=== PATIENT | male | born 1960 | race Caucasian/White ===

== ENCOUNTER 2019-11-16 04:57 | Observation (INO) ==
--- NOTE | 2019-10-28 09:04 | PAT Medication Instructions ---
Medication Instructions Date of Service October 28, 2019 Home Medications ascorbic acid (vitamin C) [Vitamin C] 1 g PO QAM cholecalciferol (vitamin D3) [Vitamin D3] 125 mcg PO QAM multivitamin 1 tab PO QAM omeprazole 20 mg PO BID DO NOT take the morning of surgery ascorbic acid (vitamin C) [Vitamin C] 1 g PO QAM cholecalciferol (vitamin D3) [Vitamin D3] 125 mcg PO QAM multivitamin 1 tab PO QAM Take morning of surgery With a small sip of water, OTHERWISE NOTHING TO EAT OR DRINK AFTER MIDNIGHT: omeprazole 20 mg PO BID Take evening before surgery omeprazole 20 mg PO BID Other Notes If you have any questions please call us at [phone] or [phone] or [phone] or [phone]
--- NOTE | 2019-10-31 10:34 | Anesthesiology Consultation ---
Date of Service October 31, 2019 Assessment & Plan (1) Encounter for pre-operative examination: - Per assessment on 10/30: Travel screen- Travel to [facility] for summer baseball games ([employer]). Uses PPE. No known COVID-19 positi ve contacts or current COVID-19 related symptoms. 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 No known COVID positive/PUI staff or clients per patient. Uses PPE). No COVID positive staff/clients. Most recent COVID test 10/18 was negative. Surgeon arranging preop COVID testing. Awaiting results. - Anxious RE SAB: requesting anxiolytic preop if possible. Chart Review Chart Review: Acceptable Risk for Surgery (pending surgeon-ordered PCP clearance (Dr. Benjamin)) and Patient seen in Pre Admission Testing Teaching & Discussion Pre-Anesthesia Teaching/Discussion Notes: Instructed NPO after midnight before surgery,except medications with 15 cc of water. Medication instructions provided according to the PAT guidelines. History Surgery Operation Date: 11/16/19 07:00 Proposed Procedures p Left Total Hip Arthroplasty - Andreas Cortes MD Height/Weight Height: 5 ft 8 in Weight: 73.4 kg Allergies Allergy/AdvReac Type Severity Reaction Status Date / Time Penicillins Allergy Severe hives, Verified 10/31/19 10:30 dyspnea Sulfa (Sulfonamide Allergy Severe hives, Verified 10/31/19 10:30 Antibiotics) dyspnea Medications Home Medications Medication Instructions Recorded Confirmed Last Taken ascorbic acid (vitamin C) [Vitamin 1 g PO QAM 10/24/19 10/24/19 Unknown C] cholecalciferol (vitamin D3) 125 mcg PO QAM 10/24/19 10/24/19 Unknown [Vitamin D3] multivitamin 1 tab PO QAM 10/24/19 10/24/19 Unknown omeprazole 20 mg PO BID 10/24/19 10/24/19 Unknown Past Medical History Medical History (Updated 10/31/19 @ 11:00 by Annabel Crawford) 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 GERD (gastroesophageal reflux disease) occasional Osteoarthritis Exercise / Class Metabolic Activity II 4-5 Yardwork/Stairs/Walk up hill Past Surgical History Surgical History History of arthroscopy RIGHT KNEE X4 LEFT KNEE X1 History of colonoscopy History of repair of rotator cuff X3 RIGHT SHOULDER WITH HARDWARE PRESENT History of tooth extraction WISDOM TEETH Past Anesthesia History No Hx of Anesthesia Complications and No Family Hx of Anesthesia Complications History of PONV No Hx of PONV and Hx of Motion Sickness (occasional) Social History Smoking Status: Never smoker Do You Dip or Chew Tobacco: No Hx Alcohol Use: Yes Alcohol type: beer and hard liquor alcohol intake frequency: a few times a week Hx Substance Use: No substance use type: does not use Review of Systems Occasional reflux. Patient denies chest pain, shortness of breath, dyspnea on exertion, fever, chills, cough, wheezing, palpitations. Physical Exam Vital Signs VITALS BP 146/84 P 75 TEMP 98.2 SP02 97%RA RESP 18 PHYSICAL Full neck and c-spine range of motion. Full TMJ range of motion. TMD 3.5 finger breaths Mallampati Score 2 Dentition: intact, + crowns (several all over) Lungs: clear throughout to auscultation Cardiac: regular rate and rhythm, no murmurs noted Spine: normal Extremities: no edema Testing Laboratory Results 10/31/19 11:02 10/31/19 11:02 PT 10.6 Seconds (9.0-12.0) 10/31/19 11:02 INR 1.0 (0.9-1.1) 10/31/19 11:02 APTT 27.4 Seconds (21.0-31.0) 10/31/19 11:02 Urine Color Dark Yellow 10/31/19 11:02 Urine Appearance Turbid (Clear) A 10/31/19 11:02 Urine pH 5.0 (4.5-7.5) 10/31/19 11:02 Ur Specific [place] 1.023 (1.000-1.030) 10/31/19 11:02 Urine Protein Negative (Negative) 10/31/19 11:02 Urine Glucose (UA) Negative (Negative) 10/31/19 11:02 Urine Ketones Trace (Negative) H 10/31/19 11:02 Urine Nitrite Negative (Negative) 10/31/19 11:02 Ur Leukocyte Esterase Negative (Negative) 10/31/19 11:02 Urine WBC (Auto) 1-5 /hpf (0-5) 10/31/19 11:02 Urine RBC (Auto) 0-4 /hpf (0-4) 10/31/19 11:02 U Hyaline Cast (Auto) 1-5 /lpf (0-5) 10/31/19 11:02 U Epithel Cells (Auto) 10-20 /lpf (0-5) H 10/31/19 11:02 Urine Bacteria (Auto) Negative (Negative) 10/31/19 11:02 Blood Type O Negative 10/31/19 11:02 Antibody Screen NEGATIVE 10/31/19 11:02 Electrocardiogram Date: 10/31/19 NSR at 75bpm. Rightward axis. unconfirmed report* Chest X-Ray Date: 10/31/19 FINDINGS: Lung volumes are normal. Lungs are clear. There is no pneumothorax or pleural effusion. Cardiac size is normal. Mediastinal contours are normal. There is no evidence for pulmonary edema. Incidental note is made of postoperative findings within each shoulder. IMPRESSION: No acute cardiopulmonary findings.
--- NOTE | 2019-10-31 11:43 | XRay Report ---
XR chest Pre-admission PA/Lat CLINICAL HISTORY: Preoperative evaluation. COMPARISON STUDY: No previous studies for comparison. FINDINGS: Lung volumes are normal. Lungs are clear. There is no pneumothorax or pleural effusion. Car diac size is normal. Mediastinal contours are normal. There is no evidence for pulmonary edema. Incid ental note is made of postoperative findings within each shoulder. IMPRESSION: No acute cardiopulmonary findings. ACT 112: Negative or not required by law. Electronically signed by: Roldan Downey M.D. 10/31/2019 11:42 AM
[2019-10-31 12:42] LABS: Basophils # (auto) 0.02 K/uL (0-0.2); Basophils % (auto) 0.2 %; Eosinophils # (auto) 0.22 K/uL (0-0.5); Hematocrit (blood only) 42.4 % (42-52); Hemoglobin 14.2 g/dL (14.0-18.0); Immature Granulocytes # (auto) 0.02 K/uL (0.00-0.02); Immature Granulocytes % (auto) 0.2 %; Lymphocytes # (auto) 1.43 K/uL (1.2-3.4); Lymphocytes % (auto) 13.2 %; Mean Corpuscular Hemoglobin 32.3 pg (25-34); Mean Corpuscular Hgb Conc 33.5 g/dL (32-36); Mean Corpuscular Volume 96.4 fL (80-100); Mean Platelet Volume 9.7 fL (7.4-10.4); Monocytes # (auto) 0.86 K/uL (0.11-0.59); Monocytes % (auto) 7.9 %; Neutrophils # (auto) 8.27 K/uL (1.4-6.5); Neutrophils % (auto) 76.5 %; Platelet Count 458 K/uL (130-400); RDW Coefficient of Variation 14.3 % (11.5-14.5); RDW Standard Deviation 50.4 fL (36.4-46.3); White Blood Count 10.82 K/uL (4.8-10.8)
[2019-10-31 12:51] LABS: Partial Thromboplastin Time 27.4 Seconds (21.0-31.0); Prothrombin Time 10.6 Seconds (9.0-12.0)
[2019-10-31 12:52] LABS: BUN Creatinine Ratio 7.2 (10-20); Calcium 9.8 mg/dl (8.5-10.1); Creatinine Clr Calc Pharmacy 79.8 ml/min; Est GFR (Non-African American) 87.2; Potassium 4.3 mmol/L (3.5-5.1)
[2019-10-31 12:54] LABS: Appearance Urine Turbid (Clear); Bacteria Urine Automated Negative (Negative); Bilirubin Urine Negative (Negative); Blood Urine Negative (Negative); Color Urine Dark Yellow; Glucose Urine UA Negative (Negative); Ketones Urine Trace (Negative); Leukocyte Esterase Urine Negative (Negative); Nitrite Urine Negative (Negative); Protein Urine Negative (Negative); RBC Urine Automated 0-4 /hpf (0-4); Specific Gravity Urine 1.023 (1.000-1.030); Urobilinogen Urine Negative (Negative)
--- NOTE | 2019-11-01 11:30 | History & Physical Report ---
Date of Service November 01, 2019 Assessment & Plan (1) Degenerative joint disease of left hip: Postoperative prescriptions for Coumadin and Percocet will be provided at discharge from the hospital. Anticipate discharge to home with home health services. Preoperative lab work, EKG, and chest x-ray have been ordered. Medical clearance has been received from his PCP, Dr. Benjamin. Prescription was provided for a walker. Informed written consent was obtained today by Dr. Cortes. PDMP was checked and there are no concerning findings. The patient is aware of COVID-19 risks associated with surgery. He is currently asymptomatic of any COVID-19 symptoms. He will obtain nasal swab testing prior to surgery for COVID-19. Order was placed. History of Present Illness Chief Complaint: Left hip pain Primary Care Provider: Yung Benjamin MD This 59-year-old white male presents today with left hip pain for a little over a year. He is scheduled to undergo a left hip total hip arthroplasty on 11/16/2019. Symptoms are worse with activity. He notes a little pain when sitting or sleeping. He is having difficulty with his ADLs due to the hip pain. Worse with weightbearing or walking. 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 He has tried activity modification as well as oral pain medication and oral anti-inflammatories without improvement. X-ray and MRI have been obtained. He notes some loss of motion. No numbness or tingling. Allergies Allergy/AdvReac Type Severity Reaction Status Date / Time Penicillins Allergy Severe hives, Verified 10/31/19 10:30 dyspnea Sulfa (Sulfonamide Allergy Severe hives, Verified 10/31/19 10:30 Antibiotics) dyspnea Home Medications Home Medications Medication Instructions Recorded Confirmed Type ascorbic acid (vitamin C) [Vitamin 1 g PO QAM 10/24/19 10/24/19 History C] cholecalciferol (vitamin D3) 125 mcg PO QAM 10/24/19 10/24/19 History [Vitamin D3] multivitamin 1 tab PO QAM 10/24/19 10/24/19 History omeprazole 20 mg PO BID 10/24/19 10/24/19 History Past Med/Surg History Medical History 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 GERD (gastroesophageal reflux disease) occasional Osteoarthritis Surgical History History of arthroscopy RIGHT KNEE X4 LEFT KNEE X1 History of colonoscopy History of repair of rotator cuff X3 RIGHT SHOULDER WITH HARDWARE PRESENT History of tooth extraction WISDOM TEETH Social History Smoking Status: Never smoker Second Hand Exposure: Yes; Do You Dip or Chew Tobacco: No; Tobacco Cessation Education Requested by Patient: No Hx Alcohol Use: Yes Alcohol type: beer and hard liquor Hx Substance Use: No Preferred Language: Chadian Communication Ability: Effective 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 General: Well-developed, well-nourished middle-aged white male in no acute distress. Sitting in a chair. Alert and oriented. Skin: Warm and dry with good turgor. No rashes or lesions. No ecchymosis or erythema. HEENT: Normocephalic, atraumatic. Eyes: PERRLA, EOMI. Nares and oropharynx exams deferred due to COVID precautions. Heart: RRR, no MGR. Lungs: Clear to auscultation bilaterally, no crackles, rhonchi or wheezing, good air movement. Abdomen: Bowel sounds present x4, soft, nontender. No organomegaly. No masses. Musculoskeletal: Left hip evaluation reveals no obvious asymmetry or deformity. He has no pain with palpation over his IT band or greater trochanter. There is pain with palpation over the anterior flexion crease and into the groin. No pain over his lumbar spine or SI joints. There is limited motion of the hip secondary to discomfort. Flexion to around 100 degrees, external rotation of 20 degrees, internal rotation of only about 5 degrees. Ambulates with a slightly antalgic gait. Neurologic: Gross sensation is intact across the left leg by soft touch. Peripheral pulses are 2+. Results & Data Results & Data ([facility]) Diagnostic Findings Radiographic imaging and MRI previously obtained show extensive arthritic changes including loss of joint space, periarticular osteophytes, and subchondral sclerosis. MRI shows cystic changes within the femoral head.
--- NOTE | 2019-11-01 21:40 | Electrocardiogram Report ---
Test Reason : Blood Pressure : / mmHG Vent. Rate : 075 BPM Atrial Rate : 075 BPM P-R Int : 160 ms QRS Dur : 094 ms QT Int : 416 ms P-R-T Axes : 055 091 005 degrees QTc Int : 464 ms Normal sinus rhythm Rightward axis Borderline ECG No previous ECGs available Confirmed by Shayan Tanner ([id number]) on 11/01/2019 9:39:32 PM Referred By: Andreas Cortes Confirmed By:Shayan Tanner
[2019-11-16] MEDS ORDERED: ROPIVACAINE 0.5% HCL/PF 150 MG, BUPIVACAINE 0.5% MPF 30 ML, EPINEPHrine 0.15 MG, Ketoro... INFIL SCH (06:00)
[2019-11-16] MEDS ORDERED: CEFAZOLIN 2000MG 2,000 MG/15 ML SYR IV SCH (06:00)
[2019-11-16] MEDS ORDERED: VANCOMYCIN HCL 1,500 MG in SODIUM CHLORIDE 0.9% 500 ML IV SCH (06:00)
[2019-11-16] MEDS ORDERED: LR 60ML/HR IV SCH (06:00)
[2019-11-16] MEDS ORDERED: TRANEXAMIC ACID 1,000 MG **IV Pre-op IV SCH (06:00)
[2019-11-16] MEDS ORDERED: LR 500ML BOLUS, THEN 15ML/HR IV SCH (06:00)
[2019-11-16] MEDS ORDERED: BUPIVACAINE 0.5 % 5 MG/1 ML PF 10ML VIAL ONE (06:22)
--- NOTE | 2019-11-16 06:27 | History & Physical Bridge Note ---
Date of Service November 16, 2019 History & Physical Bridge Note I have examined the patient, reviewed the History & Physical and in the interval since the performance of the History & Physical I have noted the following changes of clinical significance:consent /site verified/covid screen negative. no changes noted
[2019-11-16] MEDS ORDERED: MIDAZOLAM HCL 1 MG/ML 2ML VIAL ONE (06:36)
[2019-11-16] MEDS ORDERED: fentaNYL citrate 100 MCG/2 ML VIAL ONE (06:36)
[2019-11-16] MEDS ORDERED: ORTHO JOINT ANESTHETIC ONE (06:52)
[2019-11-16] MEDS ORDERED: ONDANSETRON INJ 2 MG/ML 2 ML VIAL IV PRN ×2 (07:10→09:18)
[2019-11-16] MEDS ORDERED: ATROPINE SULFATE 0.1 MG/ML 10ML SYR IV PRN (07:10)
[2019-11-16] MEDS ORDERED: KETOROLAC 30 MG/ML VIAL IV PRN (07:10)
[2019-11-16] MEDS ORDERED: ePHEDrine sulfate 50 MG/ML AMP IV PRN (07:10)
[2019-11-16] MEDS ORDERED: HYDROmorphone INJ 1 MG/ML SYRINGE IV PRN (07:10)
[2019-11-16] MEDS ORDERED: PHENYLEPHRINE 100MCG/ML 5ML SYR ONE (08:06)
[2019-11-16] MEDS ORDERED: PROPOFOL IV EMULSION 10 MG/ML 20 ML VIAL IV ONE (08:06)
[2019-11-16] MEDS ORDERED: ePHEDrine sulfate 50 MG/ML SYR ONE (08:06)
[2019-11-16] MEDS ORDERED: LIDOCAINE HCL 2% 2 ML VIAL/AMP(20MG/ML) INFIL ONE (08:06)
--- NOTE | 2019-11-16 08:24 | Post Operative Brief Note ---
Immediate Post Op Note v1 Date of Surgery November 16, 2019 Pre & Post Diagnosis Operation Date: 11/16/19 07:00 Pre-Op Diagnosis: Left Hip Degenerative Joint Disease Post-Op Diagnosis: Left Hip Degenerative Joint Disease I identified the patient and participated in the time-out.: Yes Procedure Operation Date: 11/16/19 07:00 Actual Procedures p Left Total Hip Arthroplasty--Uncemented(Left) - Andreas Cortes MD Surgeon Andreas Cortes MD Viner Operator aashish/rohan Estimated Blood Loss 100 Findings Consistent with Post-Op Diagnosis
--- NOTE | 2019-11-16 08:37 | Operative Report ---
Post Operative Report Pre & Post Diagnosis Operation Date: 11/16/19 07:00 Pre-Op Diagnosis: Left Hip Degenerative Joint Disease Post-Op Diagnosis: Left Hip Degenerative Joint Disease I identified the patient and participated in the time-out.: Yes Procedure Operation Date: 11/16/19 07:00 Actual Procedures p Left Total Hip Arthroplasty--Uncemented(Left) - Andreas Cortes MD Surgeon SARA Cortes MD Inserting Operator aashish/rohan Estimated Blood Loss 100 Findings Consistent with Post-Op Diagnosis Specimens see operative report Drains none Complications none Disposition Accompanied Patient To Recovery: Yes Disposition: Recovery Room Indications This 59-year-old white male presented to the office with complaints of persisting left hip pain. He had tried conservative care measures without improvement. He elected to proceed with surgical intervention after being educated about potential risks and outcomes. Preoperative imaging was obtained. Description of Procedure Patient was administered a spinal anesthetic and then taken to the operating room where he was given sedation. He was prepped and draped in the usual sterile fashion. Please see Dr. Cortes's operative report for specifics of the procedure. I was present for the entire case from initial patient positioning through final wound closure. Assistance was provided in tissue retraction, hemostasis, trial implant placement, final implant placement, and final wound closure. Patient was taken to the recovery room in satisfactory condition. I attest to the content of the Intraoperative Record and any orders documented therein. Any exceptions are noted below.
--- NOTE | 2019-11-16 08:38 | Operative Report ---
Post Operative Report Pre & Post Diagnosis Operation Date: 11/16/19 07:00 Pre-Op Diagnosis: Left Hip Degenerative Joint Disease Post-Op Diagnosis: Left Hip Degenerative Joint Disease I identified the patient and participated in the time-out.: Yes Procedure Operation Date: 11/16/19 07:00 Actual Procedures p Left Total Hip Arthroplasty--Uncemented(Left) - Andreas Cortes MD Surgeon Andreas Cortes MD Regulatory Intern aashish/rohan Estimated Blood Loss 100 Findings Consistent with Post-Op Diagnosis Specimens None Drains None Anesthesia Type Spinal MAC Complications none Disposition Accompanied Patient To Recovery: Yes Disposition: Recovery Room Indications Severe left hip osteoarthritis Description of Procedure As per Dr. Cortes's note, I assisted in scrubbing and draping, certain parts of the procedure, instruments handling, wound closure and accompanied patient to the recovery room I attest to the content of the Intraoperative Record and any orders documented therein. Any exceptions are noted below.
--- NOTE | 2019-11-16 08:52 | Operative Report (OR) ---
DATE OF OPERATION: 11/16/2019 SURGEON: Andreas Cortes MD. TELEMEDICINE PHYSICIAN: Mala. SECOND TELEMEDICINE PHYSICIAN: Rudi Aguilar PA-C. PREOPERATIVE DIAGNOSIS: Osteoarthritis with dysplasia, left hip. POSTOPERATIVE DIAGNOSIS: Osteoarthritis with dysplasia, left hip. OPERATION PERFORMED: Noncemented left total hip replacement. SUMMARY OF IMPLANTS: Size 52 acetabular shell sector cup hole eliminator, cancellous screw 6.5 x 25, liner 36 x 52 neutral, 2 high offset Tri-Lock and 36+5 ceramic head. ESTIMATED BLOOD LOSS: 100 mL CRYSTALLOID: Per anesthesia. DVT PROPHYLAXIS: Per protocol. PERIOPERATIVE SITUATION: Medically cleared male with intractable hip pain, has been followed for some time, wants to proceed with surgical treatment. Consent obtained, please see risks and consequences. He understands, notes that there are no guarantees. DESCRIPTION OF PROCEDURE: The patient appropriately identified, site verified, consent verified. Antibiotics confirmed as being given. The left lower extremity was prepped and draped in usual routine fashion. Posterior approach to the hip was made. Sharp dissection carried through skin and blunt dissection down to the fascia. IT band split, gluteus sudheer fascia split, retractors placed. Care taken to protect the sciatic nerve. Short external rotators identified and released. Capsule T'd, hip dislocated. Femoral neck resected and head resected. Acetabulum marked, pathology with an inverted labrum anteriorly with tear. This was all debrided. Serial reaming carried up. It was slightly medialized and then 52 cup impacted into position with excellent version and inclination. A 6.5 x 25 screw was placed with excellent purchase. The trial liner seated. The femur was then flexed and internally rotated. The proximal femur prepared with a box shook patcher, canal finder, lateralizing rasp, and serial broaching up to a size 2 was elected to stop. There was excellent press fit. A trial reduction was then carried out, slightly short with a +1.5. The hip was very stable. The hip was then dislocated. All trial elements were removed. The wound was irrigated with Betadine, Pulsavac, hole eliminator, seated permanent liner, seated permanent stem and head seated. It was a +5. Leg lengths were excellent. Wound was then irrigated one final time. The hip was stable in all planes and then closed with #2 Vicryl for the capsule and short external rotators #2-0 Vicryl for the IT band fascia, gluteus sudheer fascia, 2-0 Vicryl for the subcutaneous layer and stainless steel clips for skin. Appropriate dressing applied. The patient transferred to recovery room in satisfactory condition having tolerated the procedure well. I attest to the content of the Intraoperative Record and any orders documented therein. Any exception s are noted below.
--- NOTE | 2019-11-16 09:04 | XRay Report ---
SINGLE VIEW PELVIS CLINICAL HISTORY: Postoperative examination. FINDINGS: An AP portable view of the hips and lower pelvis is compared to study dated 10/31/2019 A bip olar left hip arthroplasty is in near-anatomic alignment. A single cortical lag screw transfixes the acetabular cup. No acute fracture is identified. There are expected postoperative changes overlying t he left hip including skin clips, subcutaneous gas, and soft tissue swelling. Mild to moderate osteoa rthritic change is noted in the right hip. There are numerous pelvic phleboliths. IMPRESSION: Expected postoperative findings status post left hip arthroplasty. No acute fracture is s een. ACT 112: Negative or not required by law. Electronically signed by: Ashish Keller M.D. 11/16/2019 9:02 AM
--- NOTE | 2019-11-16 09:13 | Anesthesiology Progress Note ---
Date of Service November 16, 2019 Anesthesia Post Procedure Vital Signs Vital Signs: Temp Pulse Pulse Resp BP Pulse Ox 11/16/19 09:00 36.4 C L 70 16 114/66 100 11/16/19 08:50 81 20 113/61 100 11/16/19 08:40 75 19 115/64 100 11/16/19 08:34 36.5 C 75 16 113/65 100 11/16/19 06:20 82 18 154/88 H 100 11/16/19 05:37 37.1 C 82 18 151/87 H 100 Pain Intensity Left Hip: Pain Intensity: 2 Transfer of Care Handoff Completed per policy Notes Mental Status: alert / awake / arousable Patient Amnestic to Procedure: Yes Nausea / Vomiting: adequately controlled Pain: adequately controlled Airway Patency, RR, SpO2: stable & adequate BP & HR: stable & adequate Hydration State: stable & adequate Anesthetic Complications: no major complications apparent
[2019-11-16] MEDS ORDERED: HYDROmorphone INJ 0.5 MG/0.5 ML SYR IV PRN (09:18)
[2019-11-16] MEDS ORDERED: TAMSULOSIN HCL 0.4 MG CAP PO PRN (09:18)
[2019-11-16] MEDS ORDERED: bisacodyL 10 MG SUPP PR PRN (09:18)
[2019-11-16] MEDS ORDERED: SODIUM CHLORIDE 0.9% 1000ML 1,000 ML IV SCH (09:18)
[2019-11-16] MEDS ORDERED: DiphenhydrAMINE HCL 50 MG/ML VIAL IV PRN (09:18)
[2019-11-16] MEDS ORDERED: OXYCODONE HCL IR 5 MG TAB (IMMEDIATE RELEASE) PO PRN (09:18)
[2019-11-16] MEDS ORDERED: METOCLOPRAMIDE HCL INJ 5 MG/ML 2 ML VIAL IV PRN (09:18)
[2019-11-16] MEDS ORDERED: MAGNESIUM HYDROXIDE SUSP 30 ML UDC PO PRN (09:18)
[2019-11-16] MEDS ORDERED: ALUMINUM/MAGNESIUM SUSP 30 ML UDC PO PRN (09:18)
[2019-11-16] MEDS ORDERED: NALOXONE HCL 0.4 MG/1 ML VIAL/CARP IV PRN (09:18)
[2019-11-16] MEDS: DOCUSATE SODIUM 100 MG CAP PO SCH ×2 (10:37→19:47)
[2019-11-16] MEDS: KETOROLAC 30 MG/ML VIAL IV SCH ×3 (10:37→21:54)
[2019-11-16] MEDS: MULTIVITAMIN TAB PO SCH (10:37)
--- NOTE | 2019-11-16 12:06 | Progress Notes ---
DATE: 11/16/2019 SUBJECTIVE: Postop check, status post left total hip replacement. The patient is sitting up in bed eating his breakfast, has no issues. Denies any chest pain, shortness of breath, fever, chills, nausea, vomiting or headache. OBJECTIVE: Vital signs are stable. He is afebrile. Neurovascular check of femoral sciatic nerve is normal. Postop x-rays look excellent. ASSESSMENT: Doing well status post left total hip replacement. Continue with care pathway. Discharge tomorrow.
--- NOTE | 2019-11-16 12:42 | Discharge Summary (DS) ---
CHIEF COMPLAINT: Left hip pain. HISTORY OF PRESENT ILLNESS: The patient underwent elective left total hip replacement. He has done well. Hospital course has been uneventful. Postop x-rays look excellent. ALLERGIES: PENICILLIN AND SULFA. PREADMISSION MEDICATIONS: Include vitamins, omeprazole. PAST MEDICAL HISTORY: Remarkable for bone cancer with lymph nodes ages 2-8, GERD, osteoarthritis. PAST SURGICAL HISTORY: Remarkable for multiple knee arthroscopies, colonoscopy, rotator cuff surgery, wisdom teeth extraction. SOCIAL HISTORY: Reveals he does not smoke, does not chew. Social alcohol only. Feels safe at home. Lives alone. REVIEW OF SYSTEMS: Noncontributory. Postoperative x-rays look excellent. ASSESSMENT: Doing well status post left total hip replacement. Discharged to home tomorrow 11/17/2019 after physical therapy and occupational therapy.
[2019-11-16] MEDS ORDERED: ORTHO WARFARIN NOMOGRAM SCH (14:00)
[2019-11-16] MEDS ORDERED: TRANEXAMIC ACID / 0.7% NACL 1,000 MG/100 ML BAG IV SCH (14:45)
[2019-11-16] MEDS: ACETAMINOPHEN 500 MG TAB PO SCH ×2 (15:01→21:54)
[2019-11-16] MEDS ORDERED: WARFARIN SOD 5 MG TAB PO SCH (16:00)
[2019-11-16] MEDS: FERROUS GLUCONATE 324 MG TAB PO SCH (17:03)
[2019-11-16] MEDS: ASCORBIC ACID 500 MG TAB PO SCH (17:04)
[2019-11-16] MEDS ORDERED: VANCOMYCIN HCL 1,000 MG in SODIUM CHLORIDE 0.9% 250 ML IV SCH (18:00)
[2019-11-16] MEDS ORDERED: SENNA 8.6 MG TAB PO SCH (21:00)
[2019-11-17] MEDS: KETOROLAC 30 MG/ML VIAL IV SCH (03:55)
[2019-11-17] MEDS: ACETAMINOPHEN 500 MG TAB PO SCH (05:34)
[2019-11-17 06:32] LABS: Basophils # (auto) 0.01 K/uL (0-0.2); Basophils % (auto) 0.1 %; Eosinophils # (auto) 0.08 K/uL (0-0.5); Eosinophils % (auto) 0.7 %; Hematocrit (blood only) 31.3 % (42-52); Hemoglobin 10.4 g/dL (14.0-18.0); Immature Granulocytes # (auto) 0.03 K/uL (0.00-0.02); Immature Granulocytes % (auto) 0.3 %; Lymphocytes # (auto) 1.45 K/uL (1.2-3.4); Lymphocytes % (auto) 12.9 %; Mean Corpuscular Hemoglobin 31.9 pg (25-34); Mean Corpuscular Hgb Conc 33.2 g/dL (32-36); Mean Platelet Volume 9.2 fL (7.4-10.4); Monocytes # (auto) 1.03 K/uL (0.11-0.59); Monocytes % (auto) 9.2 %; Neutrophils % (auto) 76.8 %; Platelet Count 395 K/uL (130-400); RDW Coefficient of Variation 14.1 % (11.5-14.5); RDW Standard Deviation 49.3 fL (36.4-46.3); Red Blood Count 3.26 M/uL (4.7-6.1)
[2019-11-17 06:40] LABS: INR 1.1 (0.9-1.1); Prothrombin Time 11.2 Seconds (9.0-12.0)
--- NOTE | 2019-11-17 06:56 | Progress Notes ---
DATE: 11/17/2019 SUBJECTIVE: Postop day #1 status post left total hip replacement. The patient is doing well, is mobile using his walker. OBJECTIVE: His wound dressing is clean, dry, and intact. Neurovascular check femoral sciatic nerve is normal. Calves nontender. A.m. labs are pending. ASSESSMENT AND PLAN: Doing well. Discharge to home today. Coumadin dose per nomogram. Will need H and H as outpatient to assess response to Coumadin. Form signed for discharge coverage.
[2019-11-17 07:03] LABS: BUN Creatinine Ratio 14.8 (10-20); Calcium 7.9 mg/dl (8.5-10.1); Creatinine Clr Calc Pharmacy 76.6 ml/min; Est GFR (African American) 96.1; Est GFR (Non-African American) 82.9; Potassium 3.9 mmol/L (3.5-5.1)
[2019-11-17] MEDS ORDERED: dexAMETHasone 10 MG in SYRINGE 0 ML IV SCH (08:00)
[2019-11-17] MEDS: ASCORBIC ACID 500 MG TAB PO SCH (08:42)
[2019-11-17] MEDS: MULTIVITAMIN TAB PO SCH (08:42)
[2019-11-17] MEDS: FERROUS GLUCONATE 324 MG TAB PO SCH (08:42)
[2019-11-17] MEDS: DOCUSATE SODIUM 100 MG CAP PO SCH (08:42)
[2019-11-17] MEDS ORDERED: WARFARIN SOD 5 MG TAB PO ONE (10:00)
--- NOTE | 2019-11-17 10:13 | Orthopedic Progress Note ---
Date of Service November 17, 2019 Assessment & Plan (1) Status post total replacement of left hip: Patient's dressing was changed this morning by me. He will leave it in place until Thursday. It may then be changed as needed for soiling. PT/OT this morning. Continue BEENA hose and Coumadin for 6 weeks. Follow-up in the office on November 30 for staple removal as scheduled. Patient lives alone and was not anticipating requiring help to change his stockings. This was discussed with him. He will make arrangements with friends. Prescriptions for Percocet and Coumadin were sent to his pharmacy. PT prescription was also provided. He will start PT in 1 week and has already made arrangements. Admission and Anticipated Discharge Date Admission Date: November 16, 2019 Subjective Patient is seen in his room this morning. He has no complaints at this point. States he has very little pain. Denies any chest pain, shortness of breath, nausea, vomiting, or abdominal pain. He has been up ambulating with his walker. He feels ready for discharge to home. He has finished his breakfast. No other complaints. Review of Systems Review of Systems: Unchanged from yesterday. Physical Exam Physical Exam: General: Well-developed, well-nourished, middle-aged white male, in no acute distress. Sitting in a chair. Alert and oriented. Skin: Left hip has his postsurgical dressings in place. There is no visible bleeding. Upon removal, scant dried drainage on his inner dressings. No active bleeding. [place] are intact. Wound edges are well approximated. No erythema or warmth. No edema. Musculoskeletal: Patient has supple motion of his left hip. He stands easily from a seated position. He ambulates well in the hallway. Intact motor function to the left knee and left ankle. Neurologic: Gross sensation is intact across the left leg by soft touch. Results & Data ([facility]) Vital Signs (Past 12 Hours) Vital Signs Temp Pulse Resp BP Pulse Ox 11/17/19 07:41 36.7 C 69 16 118/76 98 11/17/19 04:05 36.7 C 68 14 107/67 96 11/17/19 00:01 36.8 C 73 14 102/65 97 Diagnostic Findings H&H obtained this morning are 10.1 and 31.3. INR is 1.1. PRP is overall unremarkable. Calcium did drop to 7.9.
== END 2019-11-17 13:14 | disposition home health service (06) ==
LOC: ASU 04:57 → 3E 04:57

== ENCOUNTER 2021-09-04 06:39 | Observation (INO) ==
--- NOTE | 2021-08-08 08:26 | PAT Medication Instructions ---
Medication Instructions Date of Service August 08, 2021 Home Medications ascorbic acid (vitamin C) 1,000 mg tablet (Vitamin C) 1 g PO QAM cholecalciferol (vitamin D3) 125 mcg (5,000 unit) tablet (Vitamin D3) 125 mcg PO QAM multivitamin 1 tab PO QAM fluticasone propionate 50 mcg/actuation nasal spray,suspension 1 spray INTRANASAL BID DO NOT take the morning of surgery ascorbic acid (vitamin C) 1,000 mg tablet (Vitamin C) 1 g PO QAM cholecalciferol (vitamin D3) 125 mcg (5,000 unit) tablet (Vitamin D3) 125 mcg PO QAM multivitamin 1 tab PO QAM Take morning of surgery With a small sip of water, OTHERWISE NOTHING TO EAT OR DRINK AFTER MIDNIGHT: fluticasone propionate 50 mcg/actuation nasal spray,suspension 1 spray INTRANASAL BID Take evening before surgery fluticasone propionate 50 mcg/actuation nasal spray,suspension 1 spray INTRANASAL BID Other Notes If you have any questions please call us at [phone] or [phone] or [phone] or [phone]
--- NOTE | 2021-08-12 11:06 | Anesthesiology Consultation ---
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 - COVID screening: Per assessment on 08/12/2021: Travel screen negative, no known COVID-19 positive contacts or current COVID-19 related symptoms in past 2 weeks. Surgeon arranging preop COVID testing, scheduled 08/30/2021. Awaiting results. Chart Review Chart Review: Acceptable Risk for Surgery and Patient seen in Pre Admission Testing Teaching & Discussion Pre-Anesthesia Teaching/Discussion Notes: Instructed NPO after midnight before surgery, except medications with 15 cc of water. Medication instructions provided according to the PAT guidelines. History Surgery Operation Date: 09/04/21 07:00 Proposed Procedures p Right Total Knee Arthroplasty - Andresa Crotes MD Height/Weight Height: 5 ft 8 in Weight: 74.9 kg Allergies Allergy/AdvReac Type Severity Reaction Status Date / Time Penicillins Allergy Severe hives, Verified 08/07/21 11:48 dyspnea Sulfa (Sulfonamide Allergy Severe hives, Verified 08/07/21 11:48 Antibiotics) dyspnea Medications Home Medications Medication Instructions Recorded Confirmed Last Taken ascorbic acid (vitamin C) 1,000 mg 1 g PO QAM 10/24/19 08/07/21 11/15/19 09:00 tablet (Vitamin C) cholecalciferol (vitamin D3) 125 125 mcg PO QAM 10/24/19 08/07/21 11/15/19 09:00 mcg (5,000 unit) tablet (Vitamin D3) multivitamin 1 tab PO QAM 10/24/19 08/07/21 11/15/19 09:00 fluticasone propionate 50 1 spray INTRANASAL BID 08/07/21 08/07/21 Unknown mcg/actuation nasal spray,suspension Past Medical History Medical History (Updated 08/12/21 @ 15:24 by Lizz Molina PA-C) Anemia Hgb 10-11 over past 2 yrs 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 GERD (gastroesophageal reflux disease) occasional Osteoarthritis Patient denies h/o stroke, seizures, heart attack, heart failure, DM, HTN, blood clots or blood transfusions. 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 No postop issues per anesthesia progress note. Past Anesthesia History No Hx of Anesthesia Complications and No Family Hx of Anesthesia Complications History of PONV No Hx of Motion Sickness and History of PONV (denies needing scop patch) Social History Smoking Status: Never smoker Do You Dip or Chew Tobacco: No Hx Alcohol Use: Yes (24 OZ BEER/ DAY) Alcohol type: beer alcohol intake frequency: 0-2 drinks per day Hx Substance Use: No substance use type: does not use Review of Systems Snoring, denies witnessed apneas. Occasional sinus drainage and ear discomfort-plans to f/u with PCP-was advised he canot take antihistamines DOS. He will contact if any further symptoms/new medications/OTC meds/supplements. Patient denies chest pain, shortness of breath, dyspnea on exertion, fever, chills, cough, wheezing, or palpitations. Physical Exam Vital Signs Vitals BP 134/74 P 76 TEMP 98.5 SP02 98% on RA RESP 16 Physical Full cervical extension range of motion without pain TMD 3.5 finger breaths Mallampati Score 3, small oral opening Dentition: intact, several chipped teeth-one front lower and right lower side, several caps/crowns-none in front; denies loose teeth, implants or bridges Lungs: normal respiratory effort. Clear throughout to auscultation, no adv entitious breath sounds Cardiac: regular rate and rhythm, no murmurs noted Carotid arteries: negative bruit bilat Lab Results Anesthesia Preop Results Results Anesthesia Widget: WBC 7.16 K/uL (4.8-10.8) 08/12/21 Hgb 11.2 g/dL (14.0-18.0) L 08/12/21 Hct 37.6 % (42-52) L 08/12/21 Plt 492 K/uL (130-400) H 08/12/21 Na 137 mmol/L (136-145) 08/12/21 K 4.7 mmol/L (3.5-5.1) 08/12/21 Cl 106 mmol/L (98-107) 08/12/21 CO2 26 mmol/L (21-32) 08/12/21 BUN 14 mg/dl (6-23) 08/12/21 Creat 1.11 mg/dl (0.6-1.4) 08/12/21 Glucose Level 103 mg/dl (70-99(Fasting)) H 08/12/21 PT 10.8 Seconds (9.0-12.0) 08/12/21 PTT 26.8 Seconds (21.0-31.0) 08/12/21 INR 1.0 (0.9-1.1) 08/12/21 Urine Color Yellow 08/12/21 Urine Appearance Clear (Clear) 08/12/21 Urine pH 5.0 (4.5-7.5) 08/12/21 Urine Specific [place] 1.017 (1.000-1.030) 08/12/21 Urine Protein Negative (Negative) 08/12/21 Urine Glucose (UA) Negative (Negative) 08/12/21 Urine Ketones Negative (Negative) 08/12/21 Urine Blood Negative (Negative) 08/12/21 Urine Nitrite Negative (Negative) 08/12/21 Urine Bilirubin Negative (Negative) 08/12/21 Urine Urobilinogen Negative (Negative) 08/12/21 Urine Leukocyte Esterase Negative (Negative) 08/12/21 Blood Type O Negative 08/12/21 Antibody Screen NEGATIVE 08/12/21 Testing Electrocardiogram Date: 08/12/21 NSR, rate 68 bpm Rightward axis Chest X-Ray Date: 08/12/21 No lines and tubes are seen. The cardiomediastinal silhouette is normal. The lungs are clear. No evidence of pleural effusion or pneumothorax. Tendon anchors are noted in the right shoulder. IMPRESSION: No acute chest disease.
--- NOTE | 2021-08-13 16:51 | History & Physical Report ---
Date of Service August 13, 2021 Assessment & Plan (1) Right knee DJD: Plan: Postoperative prescriptions for Percocet and Coumadin will be provided at discharge from the hospital. Anticipate discharge to home with outpatient services. The patient will attend PAT today for his preoperative lab work, EKG, and chest x-ray. He has an appointment to see his PCP, Dr. Benjamin, for medical clearance. He already has a walker. The PDMP was checked, and there are no concerning findings. The patient is aware of COVID 19 risks associated with surgery. He is currently asymptomatic of any COVID-19 symptoms. He will obtain nasal swab testing 5 days prior to surgery. This will be over the holiday weekend, and he will not be able to get it done on Thursday as usual. Prescription was provided. History of Present Illness Chief Complaint: Right knee pain Primary Care Provider: Yung Benjamin MD This 60-year-old male presents for his preoperative history and physical. He is scheduled to undergo a right knee total knee arthroplasty on 09/04/2021. The patient has had longstanding history of right knee pain. Symptoms have been ongoing for years. They were initially managed well with cortisone injections and viscosupplementation injections. Over the last year, they have not been successful. Pain is now affecting his ADLs. It is interfering with his work. Worse with weightbearing. He notes occasional night pain. No effusions. Pain is worse on the lateral border of the knee. He denies any catching or locking. No numbness or tingling. He believes he had lost motion. He elects to proceed with surgical intervention in hopes of improving his function. Preoperative imaging has been obtained. Allergies Allergy/AdvReac Type Severity Reaction Status Date / Time Penicillins Allergy Severe hives, Verified 08/07/21 11:48 dyspnea Sulfa (Sulfonamide Allergy Severe hives, Verified 08/07/21 11:48 Antibiotics) dyspnea Home Medications Medication Instructions Recorded Confirmed Type ascorbic acid (vitamin C) 1,000 mg 1 g PO QAM 10/24/19 08/07/21 History tablet (Vitamin C) cholecalciferol (vitamin D3) 125 125 mcg PO QAM 10/24/19 08/07/21 History mcg (5,000 unit) tablet (Vitamin D3) multivitamin 1 tab PO QAM 10/24/19 08/07/21 History fluticasone propionate 50 1 spray INTRANASAL BID 08/07/21 08/07/21 History mcg/actuation nasal spray,suspension Past Med/Surg History Medical History Anemia Hgb 10-11 over past 2 yrs 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 GERD (gastroesophageal reflux disease) occasional Osteoarthritis Surgical History History of arthroscopy RIGHT KNEE X4 LEFT KNEE X1 History of colonoscopy History of repair of rotator cuff X3 RIGHT SHOULDER WITH HARDWARE PRESENT History of surgery 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 No postop issues per anesthesia progress note. Social History (Updated 08/13/21 @ 16:48 by Rudi Aguilar PA-C) Smoking Status: Never smoker Second Hand Exposure: No; Hx Alcohol Use: Yes (24 OZ BEER/ DAY) Alcohol type: beer Hx Substance Use: No Preferred Language: [place] Communication Ability: Effective Visual Impairment: No Limitations Almond Cutting Machine Tender Required: No Beliefs That Will Affect Care: None marital status: Current Living Situation: Alone Current Living Situation Comment: SISTER WILL HELP current occupational status: employed current occupation: [employer] Feels Safe at Home: Yes Assistive Devices: None Review of Systems Review of Systems: All systems reviewed & are unremarkable except as noted in HPI & below A total of 10 systems were reviewed. Physical Exam Physical Exam: Vitals: Height 171.1 cm, weight 74.5 kilograms, BMI 25.5. Temperature 36.5, BP 134/82, pulse 82, O2 sat is 99% on room air. General: Well-developed, well-nourished, middle-aged white male in no acute distress. Sitting in a chair. Alert and oriented. Skin: Warm and dry with good turgor. No rashes or lesions. No ecchymosis or erythema. No intraarticular effusion in the right knee. HEENT: Normocephalic, atraumatic. Eyes: PERRLA, EOMI. Nares and oropharynx exam is deferred due to COVID precautions. Heart: RRR. No MGR. Lungs: Clear to auscultation bilaterally. No crackles, rhonchi or wheezing. Good air movement. Abdomen: Bowel sounds present x4, soft, nontender. No organomegaly. No masses. Musculoskeletal: Right knee evaluation reveals no intraarticular effusion. No redness or warmth. He has a lack of about 5 degrees of terminal extension. Flexion to around 100 degrees. Strength is 5/5 with good quad tone. Stable collateral ligaments. He has focal discomfort with palpation over the medial and lateral joint lines with the lateral being worst. There is some palpable crepitus with motion of the knee. No defect in the patellar tendon or quadriceps tendon. He is ambulatory with a slightly antalgic gait. Neurologic: Gross sensation is intact across both lower extremities by soft touch. Peripheral pulses are 2+. Results & Data Results & Data ([facility]) Diagnostic Findings Radiographic imaging previously obtained shows endstage DJD of the right knee. Periarticular osteophytes and subchondral sclerosis are present along with joint space narrowing. Arthritic changes are worst in the lateral compartment. Katelynn sb alignment is noted. Code Status & VTE Plan VTE Prophylaxis Plan VTE Prophylaxis will be ordered: Yes
--- NOTE | 2021-09-04 06:20 | History & Physical Bridge Note ---
Date of Service September 04, 2021 History & Physical Bridge Note I have examined the patient, reviewed the History & Physical and in the interval since the performance of the History & Physical I have noted the following changes of clinical significance: consent obtained/site verified/pre-op covid screen negative.no changes noted
[~2021-09-04 06:39] MED LIST: BUPIVACAINE 0.5 % 5 MG/1 ML PF 10ML VIAL ONE; LR 500ML BOLUS, THEN 15ML/HR IV SCH; LR 60ML/HR IV SCH; ROPIVACAINE 0.5% 5 MG/ML 30 ML VIAL ONE; ROPIVACAINE 0.5% HCL/PF 150 MG, BUPIVACAINE 0.75% MPF 20 ML, EPINEPHrine 0.15 MG, Ketor... INFIL SCH; TRANEXAMIC ACID 1,000 MG **IV Pre-op IV SCH; VANCOMYCIN HCL 1,250 MG in SODIUM CHLORIDE 0.9% 250 ML IV SCH
[2021-09-04] MEDS ORDERED: MIDAZOLAM HCL 1 MG/ML 2ML VIAL ONE ×2 (07:42→09:58)
[2021-09-04] MEDS ORDERED: ePHEDrine sulfate 50 MG/ML AMP IV PRN (08:12)
[2021-09-04] MEDS ORDERED: ONDANSETRON INJ 2 MG/ML 2 ML VIAL IV PRN (08:12)
[2021-09-04] MEDS ORDERED: KETOROLAC 30 MG/ML VIAL IV PRN (08:12)
[2021-09-04] MEDS ORDERED: HYDROmorphone INJ 1 MG/ML SYRINGE IV PRN (08:12)
[2021-09-04] MEDS ORDERED: ATROPINE SULFATE 0.1 MG/ML 10ML SYR IV PRN (08:12)
[2021-09-04] MEDS ORDERED: PROPOFOL IV EMULSION 10 MG/ML 20 ML VIAL IV ONE ×2 (08:25)
[2021-09-04] MEDS ORDERED: LIDOCAINE 2% 2 ML VIAL/AMP(20MG/ML) INFIL ONE (08:25)
--- NOTE | 2021-09-04 09:45 | Discharge Summary (DS) ---
DATE OF ADMISSION: 09/04/2021. DATE OF POTENTIAL DISCHARGE: 09/05/2021. CHIEF COMPLAINT: Right knee pain. HISTORY OF PRESENT ILLNESS: Underwent elective right total knee replacement. At this point, [facility] course has been uneventful. History of present illness is remarkable for severe knee pain, has failed conservative management inc luding multiple injections and arthroscopic treatment in the past. ALLERGIES: INCLUDE PENICILLIN AND SULFA WITH HIVES AND DYSPNEA. HOME MEDICATIONS: Include vitamins and nasal spray fluticasone. PAST MEDICAL HISTORY: Remarkable for anemia, history of bone cancer with lymph nodes ages 2-8, histo ry of GERD, history of osteoarthritis. PAST SURGICAL HISTORY: Remarkable for arthroscopy, shoulder surgery, vocal cord tumor, wisdom teeth history, left hip replacement. SOCIAL HISTORY: Reveals he does not smoke. Social alcohol. Lives with his sister. He is employed. REVIEW OF SYSTEMS: Reveals no chest pain, shortness of breath, fever, chills, nausea or headache. ASSESSMENT: Status post right total knee replacement. Continue postoperative care pathway, rehabili tation case management review. Potential discharge tomorrow if he does well overnight. Job ID: [id number]
[2021-09-04] MEDS ORDERED: ONDANSETRON INJ 2 MG/ML 2 ML VIAL ONE (10:00)
--- NOTE | 2021-09-04 11:20 | Post Operative Brief Note ---
Immediate Post Op Note v1 Date of Surgery September 04, 2021 Pre & Post Diagnosis Operation Date: 09/04/21 08:50 Pre-Op Diagnosis: Right Knee Osteoarthritis Post-Op Diagnosis: Right Knee Osteoarthritis I identified the patient and participated in the time-out.: Yes Procedure Operation Date: 09/04/21 08:50 Actual Procedures p Right Total Knee Arthroplasty(Right) - Andreas Cortes MD Surgeon Andraes Cortes MD Body Trimmer Chris/Lauren Estimated Blood Loss 75 Findings Consistent with Post-Op Diagnosis severe DJD /bone color change
--- NOTE | 2021-09-04 11:28 | Operative Report ---
Post Operative Report Pre & Post Diagnosis Operation Date: 09/04/21 08:50 Pre-Op Diagnosis: Right Knee Osteoarthritis Post-Op Diagnosis: Right Knee Osteoarthritis I identified the patient and participated in the time-out.: Yes Procedure Operation Date: 09/04/21 08:50 Actual Procedures p Right Total Knee Arthroplasty(Right) - Andreas Cortes MD Surgeon Hung Cortes MD Humanities Teacher Chris/Lauren Estimated Blood Loss 75 Findings Consistent with Post-Op Diagnosis Consistent with post op diagnosis Specimens No specimens Description of Procedure I participated in prepping dressing and assisted Dr. Cortes during the procedure. Please see Dr. Cortes note. I attest to the content of the Intraoperative Record and any orders documented therein. Any exceptions are noted below.
--- NOTE | 2021-09-04 11:28 | Operative Report ---
Post Operative Report Pre & Post Diagnosis Operation Date: 09/04/21 08:50 Pre-Op Diagnosis: Right Knee Osteoarthritis Post-Op Diagnosis: Right Knee Osteoarthritis I identified the patient and participated in the time-out.: Yes Procedure Operation Date: 09/04/21 08:50 Actual Procedures p Right Total Knee Arthroplasty(Right) - Andreas Cortes MD Surgeon SARA Cortes MD Power Press Tender Chris/Lauren Estimated Blood Loss 75 Findings Consistent with Post-Op Diagnosis see operative report Specimens see operative report Drains none Complications none Disposition Accompanied Patient To Recovery: Yes Indications This 60-year-old male presented to the office with complaints of persisting right knee pain. He had tried conservative care measures without improvement. He elected to proceed with surgical intervention after being educated about potential risks and outcomes. Preoperative imaging was obtained. Description of Procedure Patient was administered a spinal anesthetic and then taken to the operating room where he was given sedation. He was prepped and draped in the usual sterile fashion. Please see Dr. Cortes's operative report for specifics of the procedure. I was present for the entire case from initial patient positioning through final wound closure. Assistance was provided in tissue retraction, hemostasis, trial implant placement, final implant placement, and final wound closure. Patient was taken to the recovery room in satisfactory condition. I attest to the content of the Intraoperative Record and any orders documented therein. Any exceptions are noted below.
--- NOTE | 2021-09-04 11:42 | Operative Report (OR) ---
DATE OF PROCEDURE: 09/04/2021. SURGEON: Andreas Cortes MD. TACTICAL DECEPTION PLANS OFFICER: Dolores Perez MD. SECOND TACTICAL DECEPTION PLANS OFFICER: Rudi Aguilar PA-C. PREOPERATIVE DIAGNOSES: Osteoarthritis, right knee, with valgus deformity and flexion deformity. POSTOPERATIVE DIAGNOSES: Osteoarthritis, right knee, with valgus deformity and flexion deformity. OPERATION PERFORMED: Cemented right total knee replacement using J and J rotating platform implant. PERIOPERATIVE SITUATION: Medically cleared male with intractable knee pain, has failed conservative management for an extended period of time over years. At this point in time, he wished to proceed wi th surgical treatment. He understands the risks and consequences of the procedure. He has had multi ple knee surgeries in the past. SUMMARY OF IMPLANTS: Size 3 rotating platform tray, size 3 femur posterior cruciate substituting, si ze 3 x 10 insert posterior cruciate substituting, size 41 patella, 2 bags of [place] G cement, again J and J rotating platform knee. DESCRIPTION OF PROCEDURE: The patient was appropriately identified, site verified, consent verified. Antibiotics were confirmed as being given. The right lower extremity was prepped and draped in the usual routine fashion. Tourniquet was inflated to 275 mmHg for a total of roughly 62 minutes after exsanguination of the limb with a rubber Esmarch bandage. Midline exposure utilized. Parapatellar a rthrotomy performed. Synovectomy completed, osteophytes resected. Distal femur entered. The tibia subluxated, menisci resected. Distal femur resected 14 mm. It should be mentioned that the bone was chronically changed in color, likely based on some of his medical treatment as a child. Tibia was then resected 4 mm, the extension gap was excellent. The femur was sized between a 4 and a 3; it was measured 4, cut 3 with no significant notching. Flexion gap was good, required just some slight balancing laterally. The femur was then box cut and the size 3 fit well. The tibia was then subluxated and the size 3 tem plate applied and broached and reamed appropriately and the trial fit well. With a 10 mm spacer, the knee was having full extension, full flexion and stable through the full range. The patella tracked well. The patella was resected leaving 15 mm and a 41 button was placed and it tracked well. The Or thomix was then injected all around the knee. The trial implants were removed. The wound was irrigated with Betadine Pulsavac, then the permanent cemented in position -- tibia, femur, and patella in that order. At 12 minutes, the tourniquet was d eflated. At 14 minutes, the knee was flexed. There was no major cement removal required. The wound was irrigated with Betadine. The permanent liner seated. The knee reduced and closed at 40 degrees of flexion with #2 Vicryl, 2-0 Vicryl and stainless steel clips. Appropriate dressing applied. The patient was transferred to recovery room in satisfactory condition, having tolerated the procedure we ll. Pathology pending on bone. ESTIMATED BLOOD LOSS: 50 mL. CRYSTALLOID: Per anesthesia. DVT prophylaxis per protocol. Job ID: [id number]
--- NOTE | 2021-09-04 11:59 | Anesthesiology Progress Note ---
Date of Service September 04, 2021 Anesthesia Post Procedure Vital Signs Vital Signs: Temp Pulse Resp BP Pulse Ox 09/04/21 11:45 67 16 133/76 100 09/04/21 11:35 69 18 114/70 98 09/04/21 11:26 36.3 C L 78 18 121/73 100 09/04/21 07:07 36.6 C 77 20 158/80 H 99 Transfer of Care Handoff Completed per policy Notes Mental Status: alert / awake / arousable Patient Amnestic to Procedure: Yes Nausea / Vomiting: adequately controlled Pain: adequately controlled Airway Patency, RR, SpO2: stable & adequate BP & HR: stable & adequate Hydration State: stable & adequate Anesthetic Complications: no major complications apparent
--- NOTE | 2021-09-04 12:13 | XRay Report ---
XR knee RT 1 or 2V routine HISTORY: 60 years-old Male S/P R T K A right knee total joint arthroplasty COMPARISON: 05/27/2021 TECHNIQUE: 2 views of the right knee FINDINGS: Total joint arthroplasty with patellar resurfacing. Expected postoperative soft tissue swelling with deep tissue air and anterior midline skin trey. No acute fracture, dislocation or unexpected opaqu e foreign body. IMPRESSION: Total joint arthroplasty with expected postoperative changes. ACT 112: Negative or not required by law. The above report was generated using voice recognition software. It may contain grammatical, syntax o r spelling errors. Electronically signed by: Kostas Mesa M.D. 09/04/2021 12:12 PM
[2021-09-04] MEDS ORDERED: NALOXONE HCL 0.4 MG/1 ML VIAL/CARP IV PRN (14:00)
[2021-09-04] MEDS ORDERED: diphenhydrAMINE 50 MG/ML VIAL IV PRN (14:00)
[2021-09-04] MEDS ORDERED: HYDROmorphone INJ 0.5 MG/0.5 ML SYR IV PRN (14:00)
[2021-09-04] MEDS ORDERED: SODIUM CHLORIDE 0.9% 1000ML 1,000 ML IV SCH (14:00)
[2021-09-04] MEDS ORDERED: ALUMINUM/MAGNESIUM SUSP 30 ML UDC PO PRN (14:00)
[2021-09-04] MEDS ORDERED: TAMSULOSIN HCL 0.4 MG CAP PO PRN (14:00)
[2021-09-04] MEDS ORDERED: METOCLOPRAMIDE HCL INJ 5 MG/ML 2 ML VIAL IV PRN (14:00)
[2021-09-04] MEDS ORDERED: bisacodyL 10 MG SUPP PR PRN (14:00)
[2021-09-04] MEDS ORDERED: MAGNESIUM HYDROXIDE SUSP 30 ML UDC PO PRN (14:00)
[2021-09-04] MEDS: ACETAMINOPHEN 500 MG TAB PO SCH ×2 (14:57→21:02)
[2021-09-04] MEDS: KETOROLAC TROMETHAMINE 15 MG/ML VIAL IV SCH ×2 (14:57→20:59)
[2021-09-04] MEDS ORDERED: WARFARIN SOD 5 MG TAB PO ONE (16:00)
[2021-09-04] MEDS: ORTHO WARFARIN NOMOGRAM SCH (16:24)
[2021-09-04] MEDS: FERROUS GLUCONATE 324 MG TAB PO SCH (16:26)
[2021-09-04] MEDS: ASCORBIC ACID 500 MG TAB PO SCH (16:27)
[2021-09-04] MEDS ORDERED: TRANEXAMIC ACID / 0.7% NACL 1,000 MG/100 ML BAG IV SCH (17:30)
[2021-09-04] MEDS ORDERED: VANCOMYCIN HCL 1,000 MG in SODIUM CHLORIDE 0.9% 250 ML IV SCH (19:30)
[2021-09-04] MEDS ORDERED: SENNA 8.6 MG TAB PO SCH (21:00)
[2021-09-04] MEDS: DOCUSATE SODIUM 100 MG CAP PO SCH (21:01)
[2021-09-04] MEDS: FLUTICASONE PROPIONATE NA SPR 16 GM BTL NAE SCH (21:04)
[2021-09-04] MEDS: oxyCODONE HCL IR 5 MG TAB (IMMEDIATE RELEASE) PO PRN (22:58)
[2021-09-04] MEDS: ONDANSETRON INJ 2 MG/ML 2 ML VIAL IV PRN (22:59)
[2021-09-05] MEDS: KETOROLAC TROMETHAMINE 15 MG/ML VIAL IV SCH ×2 (03:48→07:55)
[2021-09-05] MEDS: ACETAMINOPHEN 500 MG TAB PO SCH ×2 (05:58→13:40)
[2021-09-05] MEDS: DOCUSATE SODIUM 100 MG CAP PO SCH (07:53)
[2021-09-05] MEDS: ASCORBIC ACID 500 MG TAB PO SCH (07:54)
[2021-09-05] MEDS: FERROUS GLUCONATE 324 MG TAB PO SCH (07:54)
[2021-09-05] MEDS: FLUTICASONE PROPIONATE NA SPR 16 GM BTL NAE SCH (07:56)
[2021-09-05 08:00] LABS: Hematocrit (blood only) 29.6 % (40.1-51.0); Hemoglobin 9.3 g/dl (14.0-18.0); Mean Corpuscular Hemoglobin 25.2 pg (25.0-34.0); Mean Corpuscular Hgb Conc 31.4 g/dL (32.0-36.0); Mean Corpuscular Volume 80.2 fL (80.0-100.0); Mean Platelet Volume 9.4 fL (9.4-12.4); Platelet Count 330 K/uL (130-400); RDW Coefficient of Variation 21.1 % (11.5-14.5); RDW Standard Deviation 61.1 fL (36.4-46.3); Red Blood Count 3.69 M/uL (4.63-6.08); White Blood Count 13.66 K/ul (4.8-10.8)
[2021-09-05] MEDS ORDERED: dexAMETHasone 10 MG in SYRINGE 0 ML IV SCH (08:00)
[2021-09-05] MEDS: oxyCODONE HCL IR 5 MG TAB (IMMEDIATE RELEASE) PO PRN (08:04)
[2021-09-05] MEDS: ONDANSETRON INJ 2 MG/ML 2 ML VIAL IV PRN (08:04)
[2021-09-05 08:07] LABS: Prothrombin Time 10.9 Seconds (9.0-12.0)
[2021-09-05 08:23] LABS: BUN Creatinine Ratio 16.1 (10-20); Creatinine Clr Calc Pharmacy 79.7 ml/min; Est GFR (African American) 101.6 ml/min; Est GFR (Non-African American) 87.7 ml/min
--- NOTE | 2021-09-05 08:42 | Orthopedic Progress Note ---
Date of Service September 05, 2021 Assessment & Plan (1) S/P total knee replacement using cement: Plan: Patient's legs were elevated and his head was reclined. Pressure was rechecked and found to be 95/45 with a pulse of 43. His color did return. He remained nauseated but felt overall better. Patient's dressings were changed this morning by me. BEENA hose was applied. He will leave these in place until Thursday and then can change the dressings as needed for soiling. He will be having home health for the next 2 weeks. He is aware of his max flexion of 90 degrees. He was cautioned about doing too much activity too soon. Use the knee immobilizer when out of bed today and tomorrow. Discontinue its use on Thursday. Use the walker for ambulation support. He will receive his Coumadin dosing today prior to departure. Take 4mg daily and have his blood checked on Thursday. Call the office with any other concerns. Follow-up in the office in 2 weeks as scheduled on the . Admission and Anticipated Discharge Date Admission Date: September 04, 2021 Subjective Patient is seen in his room this morning. He is currently diaphoretic and pale. Patient states he just received Zofran, Decadron, Toradol, and Percocet. He felt fine yesterday and overnight. He is currently nauseated. No chest pain or shortness of breath. He did eat breakfast this morning and states it seemed to upset his stomach. He denies any chest pain, shortness of breath, or significant knee pain. Review of Systems Review of Systems: Unchanged from yesterday. Physical Exam Physical Exam: General: Well-developed, well-nourished, middle-aged white male, who is pale, diaphoretic, and nauseated. Alert and conversive. Skin: Moist with good turgor. No rashes. Postsurgical dressing is in place on the right knee. Upon removal, dressings are dry. There is scant blood on the most inner dressings. Cardwell are intact. Wound edges well approximated. No erythema. No effusion. No ecchymosis. Musculoskeletal: Patient has intact motor function of his hip, knee, and ankle. He has full terminal extension. Flexion to greater than 60 degrees. Strength is 5/5 with fair quad tone. Neurologic: Gross sensation is intact across both lower extremities by soft touch. Peripheral pulses are 2+. Results & Data ([facility] [place]) Vital Signs (Past 12 Hours) Vital Signs Temp Pulse Resp BP Pulse Ox 09/05/21 07:37 36.8 C 65 16 123/67 100 09/05/21 06:22 36.6 C 62 18 129/71 97 09/05/21 03:48 36.6 C 64 15 132/74 98 09/04/21 22:25 36.7 C 74 16 111/66 96 Laboratory Results Labs obtained today show white count of 13.66. H&H of 9.3 and 29.6. Platelets 330,000. INR is 1.0. PRP is entirely unremarkable.
--- NOTE | 2021-09-05 08:43 | Progress Notes ---
DATE OF SERVICE: 09/04/2021 SUBJECTIVE: Postop check status post right total knee replacement. The patient is sitting up in bed comfortably, in shorts and shirt, ready to end his day. He denies any chest pain, shortness of breath, fever, chills, nausea, vomiting or headache. OBJECTIVE: VITAL SIGNS: Stable. He is afebrile. Laboratory work is pending. Wound dressing clean, dry and intact. Calves nontender. Can do a straight leg raise. ASSESSMENT: Doing well. Check labs this morning, where everything looks good clinically. INR will determine his dose. If it is below 1.4, discharge on 4 mg. Follow up in 2 weeks as previously [email or web address] [email or web address] Job ID: [id number]
[2021-09-05] MEDS ORDERED: MULTIVITAMIN TAB PO SCH (09:00)
[2021-09-05] MEDS: ORTHO WARFARIN NOMOGRAM SCH (13:40)
[2021-09-05] MEDS ORDERED: WARFARIN SOD 5 MG TAB PO ONE (16:00)
== END 2021-09-05 14:42 | disposition home health service (06) ==
LOC: 3N 06:39 → ASU 06:39